=== PATIENT | female | born 1985 | race Caucasian/White ===

== ENCOUNTER 2020-08-23 17:25 | Emergency (ER) | payer OTHER, SELFPAY ==
--- NOTE | ~2020-08-23 | XR_ITS ---
CORRECTED REPORT WRONG ORDER/TITLE CHANGE 09/07/20 PK EXAMINATION: XR wrist LEFT min 3V INDICATION: Left wrist pain TECHNIQUE: Four views of the left wrist are obtained. COMPARISON: None available FINDINGS: There is no fracture, dislocation, or subluxation. The bones and joint spaces are normal. There is mild dorsal soft tissue swelling of the distal forearm. IMPRESSION: 1. Soft tissue swelling without acute osseous abnormality. Reviewed, dictated and finalized at location A. [facility]
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
[2020-08-23 17:56] VITALS: BP 114/72; PULSE 81; RESP 20; TEMP 36.9; O2SAT 100
--- NOTE | 2020-08-23 18:25 | ED.SKABFB ---
HPI - Skin/Abscess/Foreign Bdy General Chief complaint: Extremity Injury, Upper Stated complaint: Wrist pain Time Seen by Provider: 08/23/20 18:10 Source: patient and RN notes reviewed Mode of arrival: ambulatory Limitations: no limitations History of Present Illness MD complaint: rash Related Data Home Medications Medication Instructions Recorded Confirmed omeprazole 20 mg PO DAILY 08/23/20 08/23/20 quetiapine 300 mg PO DAILY 08/23/20 08/23/20 Allergies Allergy/AdvReac Type Severity Reaction Status Date / Time alcohol Allergy Mild redness to Unverified 08/23/20 17:47 skin, skin irritation Beta-Blockers Allergy Mild passed Unverified 08/23/20 17:47 (Beta-Adrenergic Bloc out, hives, swelling niacin Allergy Mild Unknown Unverified 08/23/20 17:47 Sulfa (Sulfonamide Allergy Mild hives Unverified 08/23/20 17:47 Antibiotics) azithromycin Allergy Unknown Unknown Verified 08/23/20 17:47 menthol Allergy Unknown Unknown Verified 08/23/20 17:47 methyl salicylate Allergy Unknown Unknown Verified 08/23/20 17:47 diphenhydramine AdvReac Unknown Unknown Unverified 08/23/20 17:47 hydrocodone AdvReac Unknown Unknown Unverified 08/23/20 17:47 Review of Systems Review of Systems: Narrative: CONSTITUTIONAL: Denies malaise, chills, sweats, or fever. EYES: Denies visual changes, redness, or discharge. ENT: Denies rhinorrhea, congestion, sinus pain, otalgia or sore throat. CARDIOVASCULAR: Denies chest pain, palpitations, or edema. RESPIRATORY: Denies cough or dyspnea. GASTROINTESTINAL: Denies abdominal pain, nausea, vomiting, diarrhea, bloody, or mucous stools. GENITOURINARY: Denies dysuria or hematuria. SKIN: Denies rash or itching. MUSCULOSKELETAL: Denies back pain, joint pain, or myalgia. NEUROLOGIC: Denies numbness, weakness, or headache. PSYCHIATRIC: Denies anxiety or depression. Exam Narrative: Exam Narrative: GENERAL: Well-appearing, well-nourished, and in no acute distress. HEAD: Normocephalic, atraumatic. EYES: PERRLA, conjunctivae clear, and EOMI. No nystagmus. ENT: Nares clear, turbinates pink, no rhinorrhea or epistaxis. Mucous membranes moist. TM pearly williamson with sharp light reflex bilaterally; no tragal tenderness. Oropharynx without erythema or lesions. Tonsils not enlarged and without exudate. NECK: Supple. No lymphadenopathy. No jugular venous distension, thyromegaly, or carotid bruits. Carotids were easily palpable bilaterally. CHEST: No respiratory distress. Clear to auscultation. No bony deformities, no asymmetry. Speaks in full sentences. HEART: Regular rate and rhythm. No murmur heard. Normal peripheral pulses. ABDOMEN: Soft, nontender, nondistended, normal active bowel sounds, no palpable masses. EXTREMITIES: Normal range of motion. No edema. Normal strength and sensation. SKIN: Warm, dry, no rash. NEURO: Alert and oriented x3. No focal deficits. Cranial nerves II through XII grossly intact PSYCH: Normal mood and affect Course Vital Signs Vital signs: Vital Signs Temperature 98.5 F 08/23/20 17:56 Pulse Rate 81 08/23/20 17:56 Respiratory Rate 20 08/23/20 17:56 Blood Pressure 114/72 08/23/20 17:56 Pulse Oximetry 100 08/23/20 17:56 Temperature 98.5 F 08/23/20 17:56 Pulse Rate 81 08/23/20 17:56 Respiratory Rate 20 08/23/20 17:56 Blood Pressure 114/72 08/23/20 17:56 Pulse Oximetry 100 08/23/20 17:56 MDM - Skin/Abscess/Foreign Bdy MDM Narrative Medical decision making narrative: Patients injury and pain is consistent with musculoskeletal etiology. No signs of neurological or vascular compromise on exam. Compartments and tissues are soft without signs of compartment syndrome. Pain is felt appropriate for further evaluation on an outpatient basis. Discharge Plan Discharge Clinical Impression: Injury of wrist, left Qualifiers: Encounter type: initial encounter Qualified Code(s): S69.92XA - Unspecified injury of left wrist, hand and finger(s), initial
== END 2020-08-23 18:31 | disposition home or self-care (01) ==
PROVIDERS: Emergency Provider Nurse Practitioner; PCP Physician Assistant
DX: S69.92XA Unspecified injury of left wrist, hand and finger(s), initial encounter (principal); Y04.8XXA Assault by other bodily force, initial encounter; Y99.0 Civilian activity done for income or pay; M85.80 Other specified disorders of bone density and structure, unspecified site; I42.9 Cardiomyopathy, unspecified
CPT/HCPCS: 73110; 99213; G0463

== ENCOUNTER 2022-07-23 15:46 | Outpatient (CLI) | payer OTHER, SELFPAY ==
[2022-07-23 15:59] LABS: Basophils Absolute Auto 0.1 K/mm3 (0.0-0.1); Basophils Percent Auto 0.6 % (0.2-1.2); Eosinophils Absolute Auto 0.2 K/mm3 (0-0.3); Eosinophils Percent Auto 2.6 % (0-4.4); Hematocrit 37.5 % (37.0-47.0); Hemoglobin 11.8 g/dL (12.0-15.0); Immature Granulocyte Absolute 0.02 K/mm3 (0.00-0.031); Immature Granulocyte Percent A 0.2 % (0-0.5); Mean Corpuscular HGB Conc 31.5 g/dl (32-36); Mean Corpuscular Hemoglobin 25.1 pg (26-34); Mean Corpuscular Volume 79.8 fl (80-100); Mean Platelet Volume 9.6 fl (7.4-10.4); Monocytes Absolute Auto 0.6 K/mm3 (0.1-0.6); Neutrophils Absolute Auto 3.8 K/mm3 (1.3-6.7); Neutrophils Percent Auto 45.6 % (45.5-73.1); Platelet Count Result 456 k/mm3 (150-375); Red Cell Distribution Width 20.4 % (11.5-14.5); White Blood Count 8.4 K/mm3 (4.5-10.0)
[2022-07-23 16:38] LABS: Alanine Aminotransferase 23 U/L (6-35); Albumin Level 4.5 g/dL (3.5-5.1); Alkaline Phosphatase 73 U/L (38-126); Anion Gap 9 mmol/L (8-16); Aspartate Amino Transferase 38 U/L (14-36); Bilirubin,Total 0.3 mg/dL (0.2-1.3); Blood Urea Nitrogen 16 mg/dL (7-17); Carbon Dioxide 28 mmol/L (22-30); Chloride 103 mmol/L (98-107); Estimated Glomerular Filt Rate > 60; Glucose 99 mg/dL (65-110); Potassium 4.3 mmol/L (3.4-5.0); Sodium 140 mmol/L (137-145)
[2022-07-23 17:22] LABS: Iron 34 ug/dL (37-170)
[2022-07-23 17:33] LABS: Percent Iron Saturation 7 % (20-50)
[2022-07-23 17:46] LABS: Folic Acid 12.4 ng/mL (2.76->20)
[2022-07-23 17:59] LABS: Ferritin 8.94 ng/mL (6.24-137)
[2022-07-27 10:13] LABS: Methylmalonic Acid 71 nmol/L (87-318)
[2022-07-27 11:53] LABS: Homocysteine 6.6 umol/L (<10.4)
== END 2022-07-23 15:47 | disposition home or self-care (01) ==
LOC: ANHLAB 15:47
PROVIDERS: PCP Physician Assistant; Visit Provider Internal Medicine Hematology & Oncology
DX: D64.9 Anemia, unspecified (principal)
CPT/HCPCS: 36415; 80053; 81291; 82607; 82728; 82746; 83090; 83540; 83550; 83921; 85025